=== PATIENT | female | born 1965 ===

== ENCOUNTER 2019-05-26 21:04 | Emergency (ER) | payer BC ==
--- OUTSIDE RECORDS SUMMARY | 2019-05-26 21:10 | XMS REPORT | Continuity of Care Document ---
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 [phone] Medicine Problems Description No Information Available Social History Type Date Description Comments Sex Unknown ETOH Use Denies alcohol use Tobacco Use Start: Unknown Patient has never smoked Recreational Drug Use Denies Drug Use Smoking Status Reviewed: 05/22/19 Patient has never smoked Allergies, Adverse Reactions, Alerts Active Allergies Reaction Severity Comments Date Sulfa Antibiotics vasculitis 03/06/2019 Medications Active Medications SIG Qnty Indications Ordering Date Provider Humalog Kwikpen Inject 5 Units Under Unknown The Skin Three Times 100Unit/ML Solution Daily Before Meals Pen-Inject Enalapril Maleate Take 1 Tablet By Mouth Unknown Every Day For High 5mg Tablets Blood Pressure Lantus Solostar Inject 35 Units Unknown Subcutaneously (Under 100Unit/ML Solution The Skin) Every Pen-Inject Morning Amlodipine Besylate Take 1 Tablet By Mouth Unknown Every Day 5mg Tablets [employer] Unifine Use Four Times Daily Unknown Pentips Plus/Mini/51MW8YC 31G X 5 mm Misc Immunizations Description No Information Available Vital Signs Date Vital Result Comment 05/22/2019 2:10pm Height 60 inches 5'0" Weight 204.00 lb with shoes Heart Rate 94 /min BP Systolic Sitting 149 mmHg L arm BP Diastolic Sitting 82 mmHg L arm O2 % BldC Oximetry 98 % BMI (Body Mass Index) 39.8 kg/m2 03/06/2019 1:55pm Height 60 inches 5'0" Weight 193.50 lb Heart Rate 88 /min BP Systolic Sitting 128 mmHg BP Diastolic Sitting 80 mmHg Respiratory Rate 14 /min Body Temperature 97.7 F BMI (Body Mass Index) 37.8 kg/m2 Results Description No Information Available Procedures Description No Information Available Medical Devices Description No Information Available Encounters Type Date Location Provider Dx Diagnosis Office Visit 03/06/2019 [facility] B18.2 Chronic viral 2:00p Infectious CHRISTO Neff hepatitis C Diseases E11.9 Type 2 diabetes mellitus without complications Assessments Date Code Description Provider 05/22/2019 N18.3 Chronic kidney disease, stage 3 Deneen Bansal MD (moderate) 05/22/2019 E78.5 Hyperlipidemia, unspecified Deneen Bansal MD 05/22/2019 I10 Essential (primary) hypertension Deneen Bansal MD 05/22/2019 E87.5 Hyperkalemia Deneen Bansal MD 03/06/2019 B18.2 Chronic viral hepatitis C Mei Neff NP 03/06/2019 E11.9 Type 2 diabetes mellitus without Mei Neff NP complications Plan of Treatment Future Appointment(s):07/22/2019 3:30 pm - Deneen Bansal MD at [facility] Rgamtvecpi92/18/2019 - Deneen Bansal MDN18.3 Chronic kidney disease, stage 3 (moderate)New Xrays:US Renal Complete, Ordered: 05/22/19Follow up:2 [id number] Hyperlipidemia, [id number] Essential (primary) [id number] Hyperkalemia Functional Status Description No Information Available Mental Status Description No Information Available Referrals Description No Information Available
--- NOTE | 2019-05-26 21:42 | UC ---
Laceration HPI - HPI Summary HPI Summary: 53 yo diabetic, lost her balance when she was throwing away trash and tangled with the garbage can, falling against the post of the deck. No loss of consciousness, no vision change, no nausea, vomiting or headache. Comes for evaluation and repair of laceration of the scalp. No use of aspirin or blood thinners. Does have CKD. - History Of Current Complaint Stated Complaint: BUMPED BACK OF HEAD Time Seen by Provider: 05/26/19 21:26 Hx Obtained From: Patient Mechanism Of Injury: Blunt Trauma Onset/Duration: Sudden Onset Severity: Moderate Aggravating Factors: Nothing - Allergies/Home Medications Allergies/Adverse Reactions: Allergies Allergy/AdvReac Type Severity Reaction Status Date / Time Sulfa (Sulfonamide Allergy Severe Hives Verified 05/26/19 21:38 Antibiotics) Home Medications: Home Medications Enalapril TAB* [Vasotec TAB*] 1 tab PO DAILY 05/26/19 [History Confirmed ] Insulin GLARGINE(*) [Lantus(*)] .ROUTE DAILY 05/26/19 [History] Insulin LISPRO* [HumaLOG*] SUBCUT DAILY 05/26/19 [History] amLODIPine TAB* [Norvasc 5 mg TAB*] 5 mg PO DAILY 05/26/19 [History Confirmed ] PMH/Surg Hx/FS Hx/Imm Hx Endocrine History: Diabetes Cardiovascular History: Hypertension GI/ History: Renal Disease - Family History Known Family History: Positive: Non-Contributory - Social History Occupation: Unemployed Lives: With Family Alcohol Use: None Have You Smoked in the Last Year: No Review of Systems All Other Systems Reviewed And Are Negative: Yes Constitutional: Positive: Negative Skin: Positive: Negative Eyes: Negative: Diplopia, Photophobia ENT: Positive: Negative Respiratory: Negative: Shortness Of Breath Cardiovascular: Negative: Chest Pain Gastrointestinal: Negative: Vomiting, Nausea Genitourinary: Positive: Negative Motor: Positive: Negative Neurovascular: Positive: Negative Musculoskeletal: Positive: Negative - no neck pain Neurological: Positive: Negative. Negative: Weakness, Paresthesia Psychological: Positive: Negative Is Patient Immunocompromised?: No Physical Exam Triage Information Reviewed: Yes Appearance: Well-Appearing, Pain Distress - mild, Obese Eye Exam: Other - RONNIE, no photophobia, normal eom Eyes: Positive: Conjunctiva Clear ENT: Positive: Pharynx normal Respiratory: Positive: Lungs clear, Normal breath sounds Cardiovascular: Positive: RRR, No Murmur Musculoskeletal: Positive: Strength Intact, ROM Intact - full rom in cervical spine. Neurological: Positive: Alert, Muscle Tone Normal Psychological Exam: Normal Skin Exam: Other - 2 hematomas, one to the left posterior parietal area with 3 cm laceration associated. one to the right. Both approx 3 cm and mildly tender. Laceration Repair - Laceration Repair 1 Description: Irregular Laceration Size After Repair: Length (cm) - 3, Width (mm) - 0 Modified For Repair: No Irrigation With Pressure Irrigation Device: Yes Closure Material: [place] - 4 Laceration Course/Dx - Course/Dx Course Of Treatment: repair of scalp laceration with mak. Blood pressure elevated with known hx, recent trauma likely contributing. Removal of mak in 10 days. - Differential Dx - Laceration/Wound Differental Diagnoses: Laceration, Other - possible concussion. - Diagnosis Provider Diagnosis: Laceration of scalp Discharge ED - Sign-Out/Discharge Documenting (check all that apply): Patient Departure All imaging exams completed and their final reports reviewed: No Studies - Discharge Plan Condition: Stable Disposition: HOME Patient Education Materials: Staple Care (ED), Laceration (ED) Referrals: Lucila Castillo MD [Primary Care Provider] - Additional Instructions: You can return here for removal of mak in 9 or 10 days and it is possible to register on the web. Continue use of acetaminophen 650mg every 6 hours for control of pain, and ice will help the swelling to decrease. Monitor for any signs of concussion: headache, dizziness, numbness or tingling in the limbs, mental confusion, and ensure a follow up visit with Dr. Castillo or here if you experience symptoms. - Billing Disposition and Condition Condition: STABLE Disposition: Home
[2019-05-26] MEDS ORDERED: Acetaminophen TAB* 325 MG PO ONE (21:47)
[2019-05-26 21:58] VITALS: BP 166/78
== END 2019-05-26 22:05 | disposition home or self-care (01) ==
LOC: UCEAST 21:04
DX: S01.01XA Laceration without foreign body of scalp, initial encounter (principal); W18.30XA Fall on same level, unspecified, initial encounter; Y93.E9 Activity, other interior property and clothing maintenance; Y92.018 Other place in single-family (private) house as the place of occurrence of the external cause; Y99.8 Other external cause status; E11.22 Type 2 diabetes mellitus with diabetic chronic kidney disease; I12.9 Hypertensive chronic kidney disease with stage 1 through stage 4 chronic kidney disease, or unspecified chronic kidney disease; N18.9 Chronic kidney disease, unspecified; Z88.2 Allergy status to sulfonamides; Z79.4 Long term (current) use of insulin
CPT/HCPCS: 12002; 99212; A9270-GY; G0463

== ENCOUNTER 2019-06-04 17:14 | Emergency (ER) | payer BC ==
[2019-06-04 18:18] VITALS: BP 145/82
--- NOTE | 2019-06-04 18:24 | UC ---
Laceration HPI - HPI Summary HPI Summary: 53 yo female presents for staple removal. She had 4 mak placed on 05/26 to her parietal scalp s/p fall down stairs. Has not had any issues such as headache , pain, drainage, or bleeding from the site. - History Of Current Complaint Chief Complaint: LADARIUSkin Stated Complaint: SUTURE REMOVAL Time Seen by Provider: 06/04/19 18:23 Hx Obtained From: Patient Hx Last Menstrual Period: post Laceration Location: Head Pain Intensity: 0 - Allergies/Home Medications Allergies/Adverse Reactions: Allergies Allergy/AdvReac Type Severity Reaction Status Date / Time Sulfa (Sulfonamide Allergy Severe vasculitis Verified 06/04/19 18:18 Antibiotics) PMH/Surg Hx/FS Hx/Imm Hx Endocrine History: Diabetes Cardiovascular History: Hypertension - Surgical History Surgical History: Yes Surgery Procedure, Year, and Place: 1992 - Family History Known Family History: Positive: Non-Contributory - Social History Lives: With Family Alcohol Use: None Substance Use Type: None Smoking Status (MU): Never Smoked Tobacco Have You Smoked in the Last Year: No Review of Systems All Other Systems Reviewed And Are Negative: No Constitutional: Positive: Negative Skin: Positive: Other - Staple removal Respiratory: Positive: Negative Cardiovascular: Positive: Negative Neurological: Positive: Negative Psychological: Positive: Negative Physical Exam - Summary Physical Exam Summary: GENERAL: NAD. WDWN. No pain distress. SKIN: [address] to scalp laceration at parietal scalp. Wound healed well. No discharge, bleeding, or tenderness CHEST: No accessory muscle use. Breathing comfortably and in no distress. CV: Pulses intact. Cap refill <2seconds NEURO: Alert. PSYCH: Age appropriate behavior. Triage Information Reviewed: Yes Vital Signs: Initial Vital Signs Temp 99.1 F 06/04/19 18:14 Pulse 95 06/04/19 18:14 Resp 16 06/04/19 18:14 BP 145/82 06/04/19 18:14 Pulse Ox 99 06/04/19 18:14 Vital Signs Reviewed: Yes Laceration Course/Dx - Course/Dx Course Of Treatment: 4 mak removed without difficulty - Diagnosis Provider Diagnosis: Removal of staple Discharge ED - Sign-Out/Discharge Documenting (check all that apply): Patient Departure All imaging exams completed and their final reports reviewed: No Studies - Discharge Plan Condition: Stable Disposition: HOME Patient Education Materials: Stitches Removal (ED) Referrals: Lucila Castillo MD [Primary Care Provider] - Additional Instructions: If you develop a fever, shortness of breath, chest pain, new or worsening symptoms - please call your PCP or go to the ED immediately. Your blood pressure was high at todays visit. Please see your primary provider within 4 weeks for recheck and re-evaluation. - Billing Disposition and Condition Condition: STABLE Disposition: Home
== END 2019-06-04 18:35 | disposition home or self-care (01) ==
LOC: UCEAST 17:14
DX: S01.01XD Laceration without foreign body of scalp, subsequent encounter (principal); E11.9 Type 2 diabetes mellitus without complications; I10 Essential (primary) hypertension; Z88.2 Allergy status to sulfonamides; W10.9XXD Fall (on) (from) unspecified stairs and steps, subsequent encounter